=== PATIENT | male | born 1955 | race African-American/Black ===

== ENCOUNTER 2019-08-21 12:34 | Inpatient (IN) | payer MEDICARE ==
[~2019-08-21] VITALS: Ht 165.1 cm; Wt 82.1 kg
[2019-08-21 09:24] VITALS: BP 144/69
[2019-08-21 13:16] LABS: APTT 29.3 SECONDS (22.8-39.4); INR 1.35 (0.85-1.17); PROTIME 16.5 SECONDS (11.6-15.0)
--- NOTE | 2019-08-21 13:20 | NUR ---
RT COLLECTED ABG'S AND BASED ON RESULTS, O2 INCREASED TO 3 L PNC
[2019-08-21 13:23] VITALS: BP 201/95
[2019-08-21 14:08] LABS: CALC OSMOLALITY 309 mosm/kg (275-300); CALCIUM 8.2 mg/dL (8.5-10.1); CARBON DIOXIDE 22.5 mmol/L (21.0-32.0); CHLORIDE - SERUM 103 mmol/L (98-107); CREATININE - SERUM 14.6 mg/dL (0.6-1.3); GLUCOSE 84 mg/dL (74-106); POTASSIUM - SERUM 4.9 mmol/L (3.5-5.1); SODIUM 142 mmol/L (136-145); UREA NITROGEN 90 mg/dL (7-18); eGFR NON AFRICAN AMERICAN 4 mL/min (90-120)
[2019-08-21 14:19] LABS: BASOPHILS 0.1 % (0-2); EOSINOPHILS 0.1 % (0-7); HEMATOCRIT 37.3 % (42.0-54.0); HEMOGLOBIN 12.5 g/dL (13.5-17.5); IMMATURE GRANULOCYTES 0.4 % (0-5); LYMPHOCYTES 7.7 % (15-50); MCH 23.8 pg (26.0-34.0); MCHC 33.5 g/dL (31.0-37.0); MONOCYTES 6.2 % (2-11); NEUTROPHILS 85.5 % (40-80); PLATELET COUNT 141 10x3/uL (130-400); RBC 5.25 10x6/uL (4.20-6.10); RDW 20.9 % (11.5-14.5)
[2019-08-21 14:32] LABS: ALKALINE PHOSPHATASE 46 U/L (30-120); ALT (SGPT) 18 U/L (10-68); BILIRUBIN - TOTAL 0.66 mg/dL (0.2-1.3); CKMB 11.4 U/L (0.0-3.6); CREATINE KINASE 408 UL (21-232); PRO BNP 8567 pg/mL (0-125)
[2019-08-21 14:33] LABS: TROPONIN-I 0.082 ng/mL (0.000-0.060)
--- NOTE | 2019-08-21 14:40 | NUR ---
SPOKE WITH VALDEZ ARAUZ NO BC'S NEEDED BEFORE ABXS
--- NOTE | 2019-08-21 14:45 | NUR ---
RAC SL INFILTRATED. ATTEMPTED TO RESTART X2 UNSUCCESSFULLY X 2 RN'S. CALLED [facility] IN DIALYSIS. INSTR NOT TO GIVE ABXS OR CATAPRES BEFORE DIALYSIS. NOTIFIED
--- NOTE | 2019-08-21 14:45 | NUR ---
ROCEPHIN SCANNED BUT NOT STARTED D/T NO IV
[2019-08-21 14:57] VITALS: BP 232/86
--- NOTE | 2019-08-21 15:10 | NUR ---
TO DIALYSIS VIA STRETCHER CONDITION STABLE
--- NOTE | 2019-08-21 15:39 | NUR ---
REPORT CALLED TO SAHRA LONGORIA. PT TO GO TO ROOM #[id number] UPON COMPLETION OF DIALYSIS. INFORMED SWATI OF UNSUCCESSFUL IV ATTEMPT AND NO ABXS GIVEN. TO CALL WHEN PT GETS TO ROOM AND WILL ATTEMPT IV WITH US
[2019-08-21] MEDS ORDERED: NORVASC10 MG PO (15:56)
[2019-08-21] MEDS ORDERED: ISOSORBIDE MONO60 M1 PO (15:57)
[2019-08-21] MEDS ORDERED: COREG25 MG PO (15:57)
[2019-08-21] MEDS ORDERED: RENVELA800 MG PO (15:58)
--- NOTE | 2019-08-21 18:30 | NUR ---
RECIEVED PT TO FLOOR FROM DIALYSIS. PT OXYGEN TANK ON EMPTY.
--- NOTE | 2019-08-21 18:40 | NUR ---
PT TO ROOM #2106 AFTER DIALYSIS. IV PLACED TO DOROTHEA VIA US ASSIST. PT LEIGH WELL. REPORT TO SIENNA LONGORIA
--- NOTE | 2019-08-21 19:39 | NUR ---
EVENING ROUNDS COMPLETE. PT SITTING UP IN BED. FAMILY AT BEDSIDE. NO SIGNS OF DISTRESS. PT BP ELEVATED, WILL GIVE MEDICATIONS FROM EMAR. PT DENIES ANY NEEDS OR PAIN AT THIS TIME. CL IN REACH, BED IN LOWEST POSITION.
[2019-08-21 20:00] VITALS: BP 197/99
[2019-08-22] VITALS (7 sets, daily range): BP systolic 144–188; BP diastolic 59–88; Ht 165.1 cm; Wt 82.1 kg
--- NOTE | 2019-08-22 02:13 | NUR ---
PT UNABLE TO GIVE INFORMATION ON MED REC. PT STATES, "MY GIVES ME A CUP OF MEDICATION IN THE MORNING AND IN THE EVENING, I DONT KNOW WHAT ALL I TAKE."
[2019-08-22 05:55] LABS: ALBUMIN 2.4 g/dL (3.4-5.0); ANION GAP 16.7 mmol/L (8-16); BILIRUBIN - TOTAL 0.66 mg/dL (0.2-1.3); CALCIUM 8.3 mg/dL (8.5-10.1); CARBON DIOXIDE 27.2 mmol/L (21.0-32.0); CREATININE - SERUM 11.9 mg/dL (0.6-1.3); MAGNESIUM - SERUM 2.3 mg/dL (1.8-2.4); PHOSPHOROUS 7.5 mg/dL (2.5-4.9); POTASSIUM - SERUM 4.9 mmol/L (3.5-5.1)
[2019-08-22 06:16] LABS: BASOPHILS 0 % (0-2); EOSINOPHILS 1.7 % (0-7); HEMATOCRIT 32.6 % (42.0-54.0); HEMOGLOBIN 10.6 g/dL (13.5-17.5); IMMATURE GRANULOCYTES 0.4 % (0-5); LYMPHOCYTES 13.4 % (15-50); MCHC 32.5 g/dL (31.0-37.0); MCV 70.9 fL (80.0-100.0); MONOCYTES 7.9 % (2-11); NEUTROPHILS 76.6 % (40-80); PLATELET COUNT 134 10x3/uL (130-400); RDW 20.4 % (11.5-14.5); WBC 10.8 10x3/uL (4.8-10.8)
--- NOTE | 2019-08-22 19:52 | NUR ---
REPORT RECIEVED AND ROUNDING COMPLETE. PATIENT LAYING IN BED IN LOW FOWLERS. PATIENT HAS A RIGHT FOREARM PIV THAT IS SALINE LOCKED AT THIS TIME. PIV IS PATENT AND FLUSHES EASILY. PATIENT IS WEARING NASAL CANNULA WITH O2 SET ON 3L. PATIENT IS ALERT AND ORIENTED X4. PATIENT REQUESTED A CUP OF ICE WGHICH WAS GIVEN. PATIENT SHOWS NO S/SX OF DISTRESS AT THIS TIME. PATIENT STATES HE HAS NO OTHER NEEDS. CALL LIGHT WITHIN REACH AND BED IN LOWEST LOCKED POSITION.
--- NOTE | 2019-08-22 21:25 | NUR ---
SCANNED MEDICATIONS ON RT'S COW. COMPUTER IN ROOM [facility]
[2019-08-23 01:18] VITALS: BP 106/67
--- NOTE | 2019-08-23 03:45 | NUR ---
I have reviewed this patient and I concur with the Shift Assessment completed by the Licensed Practical Nurse today this shift.
[2019-08-23 04:42] VITALS: BP 169/71
[2019-08-23 08:00] VITALS: BP 186/87
--- NOTE | 2019-08-23 09:57 | NUR ---
NURSE PRACTIONER AT BEDSIDE AND DISCUSSING DISCHARGE PLANNING. PT IS CURRENTLY ON OXYGEN BUT DOESNT WEAR ANY AT HOME. WE REMOVED IT TO SEE HOW HE DOES WITHOUT IT AND WILL CPOC.
--- NOTE | 2019-08-23 10:25 | NUR ---
RESTING PULSE OX 93% ON RA. PT DENIES ANY SOB. WILL LEAVE NC OFF AND SEE HOW HE CONTINUES TO DO.
[2019-08-23] MEDS ORDERED: AMOX TR-K CLV 21 TAB PO (11:35)
[2019-08-23 12:00] VITALS: BP 178/74
--- NOTE | 2019-08-23 12:08 | NUR ---
WALK TEST PERFORMED TO CHECK FOR HOME AND PORTABLE OXYGEN USE. DURING OUR WALK PTS O2 SAT DROPPED TO 84%. ASSISTED HIM BACK TO HIS ROOM AND WAS ABLE TO GET HIS LEVEL BACK UP. NC IN PLACE @2L AND PULSE OX NOW 94%. DISCUSSED WITH CASE MANAGEMENT AND WILL GET HIM SET UP BEFORE DISCHARGE. DIALYSIS CALLED FOR PT, WILL ESCORT HIM DOWN WITH HIS MEAL TRAY VIA W/C. NO FURTHER NEEDS AT THIS TIME.
--- NOTE | 2019-08-23 13:55 | MORECARE ---
CASE MANAGEMENT DISCHARGE SUMMARY PATIENT: HOANG GUTIERREZ UNIT: [id number] ADM DATE: 08/21/19 AGE: 64 : 53 SEX: M ROOM/BED: D.2106 AUTHOR: ELISE COCHRAN PHYSICIAN: REFERRING PHYSICIAN: ИРИНА HAIRSTON DO DATE OF SERVICE: 08/23/19 Discharge Plan Patient Name: HOANG GUTIERREZ Facility: [facility]:[place] : 1955 Planned Disposition: Home Anticipated Discharge Date: 08/23/19 Discharge Date: Expected LOS: 2 Initial Reviewer: [email or web address] Initial Review Date: 08/21/2019 Generated: 08/23/19 2:55 pm DCPIA - Discharge Planning Initial Assessment Updated by [id number]: Ben Engel on 08/23/19 1:55 pm * Is the patient Alert and Oriented? Yes * How many steps to enter\exit or inside your home? 3-4 * PCP S[facility]INA TORRES * Pharmacy [facility] * Preadmission Environment Home with Family * ADLs Partial Dependent * Partial ADLs (Assistance needed) Medication Management * Equipment None * Other Equipment NO MEDICAL EQUIPMENT PROVIDER PREFERENCE * List name and contact numbers for known caregivers / representatives who currently or will assist patient after discharge: JORGE ODELL DTR, * Verbal permission to speak to the caregivers and representatives has been obtained from the patient. N/A * Community resources currently utilized Other * Please name any agencies selected above. [facility], MWF, 0700, [facility], [facility] * Additional services required to return to the preadmission environment? No * Can the patient safely return to the preadmission environment? Yes * Has this patient been hospitalized within the prior 30 days at any hospital? No External Providers External Provider: OTHER-OTHER Next Contact Date: 08/23/2019 Service Request Date: Service Type: Resolution: Reviewer: Comments: Patient Name: HOANG GUTIERREZ Page [phone] at 1355 All edits/amendments must be made on the electronic document DICTATION DATE: 08/23/19 1356 CORRUGATED FASTENER DRIVER: YOSI 08/23/19 1355 RPT#: [id number] DC DATE: STATUS: ADM IN [facility] [address] [place] [address] END OF REPORT
--- NOTE | 2019-08-23 14:13 | MORECARE ---
CASE MANAGEMENT DISCHARGE SUMMARY PATIENT: HOANG GUTIERREZ UNIT: [id number] ADM DATE: 08/21/19 AGE: 64 : 53 SEX: M ROOM/BED: D.2100 AUTHOR: SAMMIE,DOC PHYSICIAN: REFERRING PHYSICIAN: ИРИНА HAIRSTON DO DATE OF SERVICE: 08/23/19 Discharge Plan Patient Name: HOANG GUTIERREZ Facility: [facility]:[place] : 1955 Planned Disposition: Home Anticipated Discharge Date: 08/24/19 Discharge Date: Expected LOS: 3 Initial Reviewer: [email or web address] Initial Review Date: 08/21/2019 Generated: 08/23/19 3:13 pm Comments DCP- Discharge Planning Updated by [id number]: Ben Engel on 08/23/19 1:[address] Patient Name: HOANG GUTIERREZ Admission Status: ER Accout number: [id number] Admission Date: 08-21-2019 : 1955 Admission Diagnosis: Attending: AJITH Current LOS: 2 Anticipated DC Date: 08-23-2019 Planned Disposition: Home Primary Insurance: MEDICARE A & B PLANNED EXTERNAL PROVIDER: [facility]QUIP[facility] Discharge Planning Comments: CM SPOKE TO BEDSIDE NURSE WHO INFORMED CM THAT PT NEEDS OXYGEN FOR DISCHARGE. CM MET WITH PT IN ROOM TO DISCUSS DISCHARGE PLANNING AND NEEDS. PT REPORTS LIVING AT HOME INDEPENDENTLY WITH SPOUSE WHO ASSISTS WITH MEDICATIONS. PT HAS NO MEDICAL EQUIPMENT AND NO OUTSIDE SERVICES ASSISTING IN THE HOME. CM DISCUSSED AVAILABILITY OF HOME HEALTH, REHAB SERVICES AND MEDICAL EQUIPMENT. PT DENIES DISCHARGE NEEDS, REPORTS HE WILL CALL FAMILY TO PICK HIM UP FOR DISCHARGE HOME. IMPORTANT MESSAGE FROM MEDICARE PROVIDED AND EXPLAINED. PT HAS NO CHOICE OF OXYGEN PROVIDER, CHOICE COMPLETED. CM SPOKE TO VALDEZ CARBAJAL AND RECEIVED OXYGEN ORDERS. CM CALLED [facility], , SPOKE TO ABY WHO WILL PROCESS ORDER FOR OXYGEN AND HAVE [facility] IN [place] DELIVER PORTABLE TO HOSPITAL FOR DISCHARGE HOME TODAY AND WILL HAVE HOME DELIVERY OF OXYGEN AFTER PT ARRIVES AT HOME TODAY. CM FAXED ORDER AND REFERRAL TO [facility] AT [phone]. CM NOTIFIED PT IN DIALYSIS WHO REPORTS HIS FAMILY CANNOT REFUELING RAMP SUPERVISOR UNTIL TOMORROW. CM CALLED MEDICAID TRANSPORTATION, PT IS NOT ELIGIBLE HE IS "[place] MED[place]ID." CM CALLED HUSSEIN CALVERT, [phone], OBTAINED QUOTE FOR TRANSPORT OF $225.00. CM NOTIFIED CM DIRECTOR ABEL AND REQUESTED APPROVAL FOR [facility] TRANSPORTATION HOME FOR DISHCHARGE TODAY. CM WAITING ON ADMINISTRATIVE APPROVAL FOR [employer] HOME TODAY. IF DENIED, FAMILY WILL REFUELING RAMP SUPERVISOR TOMORROW. [facility] TO DELIVER PORTABLE OXYGEN TO PT'S ROOM FOR DISCHARGE HOME TODAY. Fitter Armament: Ben Engel Appended by Ben Engel on 08/23/2019 14:12 ESCAPEMENT MATCHER: CM RECEIVED CALL FROM CM CHEMICAL COMPOUNDER HELPER ABEL, I DECLINED, PT CAN WAIT ON FAMILY TO TRANSPORT TOMORROW, 08-24-19. FAMILY WILL REFUELING RAMP SUPERVISOR TOMORROW. [facility] TO DELIVER PORTABLE OXYGEN TO PT'S ROOM 08-23-19 FOR DISCHARGE HOME. Fitter Armament: Ben Engel DCPIA - Discharge Planning Initial Assessment Updated by [id number]: Ben Engel on 08/23/19 1:55 pm * Is the patient Alert and Oriented? Yes * How many steps to enter\\exit or inside your home? 3-4 * PCP [facility] TORRES * Pharmacy [facility] * Preadmission Environment Home with Family * ADLs Partial Dependent * Partial ADLs (Assistance needed) Medication Management * Equipment None * Other Equipment NO MEDICAL EQUIPMENT PROVIDER PREFERENCE * List name and contact numbers for known caregivers / representatives who currently or will assist patient after discharge: JORGE ODELL DTR, * Verbal permission to speak to the caregivers and representatives has been obtained from the patient. N/A * Community resources currently utilized Other * Please name any agencies selected above. OUTPATIENT DIALYSIS, MWF, 0700, [facility], [facility] * Additional services required to return to the preadmission environment? No * Can the patient safely return to the preadmission environment? Yes * Has this patient been hospitalized within the prior 30 days at any hospital? No Coverage Notice Reviewer: [id number] - Ben Engel Notice Issued Date-Time: 08/23/2019 12:10 Notice Type: Patient Choice Letter Notice Delivered To: Patient Relationship to Patient: Hardware Manager Name: Delivery Method: HAND - Hand Delivered Jaki Days: Prior Verbal Notification: Recipient Understood Notice: Yes Recipient Signature: Yes Med Rec Note Co-signed by Attending: Coverage Notice Comment: NO MEDICAL EQUIPMENT PROVIDER PREFERENCE Reviewer: [id number] Gracia Engel Notice Issued Date-Time: 08/23/2019 12:10 Notice Type: IM Discharge Notice Notice Delivered To: Patient Relationship to Patient: Hardware Manager Name: Delivery Method: HAND - Hand Delivered Jaki Days: Prior Verbal Notification: Recipient Understood Notice: Yes Recipient Signature: Yes Med Rec Note Co-signed by Attending: Coverage Notice Comment: Last DP export: 08/23/19 12:55 p Patient Name: HOANG GUTIERREZ Page [phone] at 1413 All edits/amendments must be made on the electronic document DICTATION DATE: 08/23/19 1413 [facility] ATTENDANT: YOSI 08/23/19 1413 RPT#: [id number] DC DATE: STATUS: ADM IN [facility] [address] [place] [address] END OF REPORT
--- NOTE | 2019-08-23 14:19 | NUR ---
PT JUST TOLD US HIS FAMILY CANT COME FOR TRANSPORTATION UNTIL TOMORROW WILL RELAY MESSAGE TO CASE MANAGEMENT.
--- NOTE | 2019-08-23 15:49 | NUR ---
PT BACK FROM DIALYSIS AND AMBULATED TO HIS BED. NEW PORTABLE OXYGEN IN ROOM AND READY FOR DISCHARGE. VSS. PT RESTING QUIETLY AND DENIES ANY CURRENT PAIN OR NEEDS AT THIS TIME. CL IN REACH, BED IN LOWEST, SIDE RAILS X2. WILL CPOC.
--- NOTE | 2019-08-23 18:50 | NUR ---
PT WILL BE DISCHARGED TOMORROW AND IS HAPPY ABOUT THIS. PT STATES HE IS FEELING GOOD AND DENIES ANY CURRENT PAIN OR NEEDS. CL IN REACH, WILL PASS ON IN SHIFT REPORT.
[2019-08-23 20:30] VITALS: BP 183/98
[2019-08-24 00:30] VITALS: BP 158/84
[2019-08-24 04:30] VITALS: BP 161/59
[2019-08-24 08:00] VITALS: BP 195/99
--- NOTE | 2019-08-24 09:44 | NUR ---
PT AWAKE AND ORIETNED, WAITING ON RIDE. I/V OUT TIP INTACT.
--- NOTE | 2019-08-24 11:39 | NUR ---
PT ESCORTED OUT VIA SELF AMBULATION, DENIES NEED FOR WHEELCHIAR, TO DAUGHTERS POV.
--- NOTE | 2019-08-25 11:43 | MORECARE ---
CASE MANAGEMENT DISCHARGE SUMMARY PATIENT: HOANG GUTIERREZ UNIT: [id number] ADM DATE: 08/21/19 AGE: 64 : 51 SEX: M ROOM/BED: D.2104 AUTHOR: SAMMIE,DOC PHYSICIAN: REFERRING PHYSICIAN: ИРИНА HAIRSTON DO DATE OF SERVICE: 08/25/19 Discharge Plan Patient Name: HOANG GUTIERREZ Facility: [facility]:[place] : 1955 Planned Disposition: Home Anticipated Discharge Date: 08/24/19 Discharge Date: 08/24/2019 Expected LOS: 3 Initial Reviewer: [email or web address] Initial Review Date: 08/21/2019 Generated: 08/25/19 12:42 pm Comments DCP- Discharge Planning Updated by [id number]: Ben Engel on 08/23/19 1:[address] Patient Name: HOANG GUTIERREZ Admission Status: ER Accout number: [id number] Admission Date: 08-21-2019 : 1955 Admission Diagnosis: Attending: AJITH Current LOS: 2 Anticipated DC Date: 08-23-2019 Planned Disposition: Home Primary Insurance: MEDICARE A & B PLANNED EXTERNAL PROVIDER: [facility] MEDICAL [facility]QUIPMENT Discharge Planning Comments: CM SPOKE TO BEDSIDE NURSE WHO INFORMED CM THAT PT NEEDS OXYGEN FOR DISCHARGE. CM MET WITH PT IN ROOM TO DISCUSS DISCHARGE PLANNING AND NEEDS. PT REPORTS LIVING AT HOME INDEPENDENTLY WITH SPOUSE WHO ASSISTS WITH MEDICATIONS. PT HAS NO MEDICAL EQUIPMENT AND NO OUTSIDE SERVICES ASSISTING IN THE HOME. CM DISCUSSED AVAILABILITY OF HOME HEALTH, REHAB SERVICES AND MEDICAL EQUIPMENT. PT DENIES DISCHARGE NEEDS, REPORTS HE WILL CALL FAMILY TO PICK HIM UP FOR DISCHARGE HOME. IMPORTANT MESSAGE FROM MEDICARE PROVIDED AND EXPLAINED. PT HAS NO CHOICE OF OXYGEN PROVIDER, CHOICE COMPLETED. CM SPOKE TO VALDEZ CARBAJAL AND RECEIVED OXYGEN ORDERS. CM CALLED [facility]IP[facility], , SPOKE TO ABY WHO WILL PROCESS ORDER FOR OXYGEN AND HAVE [facility] IN [place] DELIVER PORTABLE TO HOSPITAL FOR DISCHARGE HOME TODAY AND WILL HAVE HOME DELIVERY OF OXYGEN AFTER PT ARRIVES AT HOME TODAY. CM FAXED ORDER AND REFERRAL TO [facility] AT [phone]. CM NOTIFIED PT IN DIALYSIS WHO REPORTS HIS FAMILY CANNOT BACK ROLL LATHE OPERATOR UNTIL TOMORROW. CM CALLED MEDICAID TRANSPORTATION, PT IS NOT ELIGIBLE HE IS "[place]." CM CALLED HUSSEIN TURNERI, [phone], OBTAINED QUOTE FOR TRANSPORT OF $225.00. CM NOTIFIED CM DIRECTOR ABEL AND REQUESTED APPROVAL FOR [facility] TRANSPORTATION HOME FOR DISHCHARGE TODAY. CM WAITING ON ADMINISTRATIVE APPROVAL FOR [employer] HOME TODAY. IF DENIED, FAMILY WILL BACK ROLL LATHE OPERATOR TOMORROW. [facility] TO DELIVER PORTABLE OXYGEN TO PT'S ROOM FOR DISCHARGE HOME TODAY. Cast Iron Dipper: Ben Engel Appended by Ben Engel on 08/23/2019 14:12 QUARTER TRIMMER: CM RECEIVED CALL FROM CM FUDGE CANDY MAKER ABEL, NEHAL DECLINED, PT CAN WAIT ON FAMILY TO TRANSPORT TOMORROW, 08-24-19. FAMILY WILL BACK ROLL LATHE OPERATOR TOMORROW. [facility] TO DELIVER PORTABLE OXYGEN TO PT'S ROOM 08-23-19 FOR DISCHARGE HOME. Cast Iron Dipper: Ben Engel DCPIA - Discharge Planning Initial Assessment Updated by [id number]: Ben Engel on 08/23/19 1:55 pm * Is the patient Alert and Oriented? Yes * How many steps to enter\\exit or inside your home? 3-4 * PCP [facility]INA TORRES * Pharmacy [facility] * Preadmission Environment Home with Family * ADLs Partial Dependent * Partial ADLs (Assistance needed) Medication Management * Equipment None * Other Equipment NO MEDICAL EQUIPMENT PROVIDER PREFERENCE * List name and contact numbers for known caregivers / representatives who currently or will assist patient after discharge: JORGE ODELL DTR, * Verbal permission to speak to the caregivers and representatives has been obtained from the patient. N/A * Community resources currently utilized Other * Please name any agencies selected above. OUTPATIENT DIALYSIS, MWF, 0700, [facility], [facility]EL[facility] * Additional services required to return to the preadmission environment? No * Can the patient safely return to the preadmission environment? Yes * Has this patient been hospitalized within the prior 30 days at any hospital? No Coverage Notice Reviewer: [id number] - Ben Engel Notice Issued Date-Time: 08/23/2019 12:10 Notice Type: Patient Choice Letter Notice Delivered To: Patient Relationship to Patient: Lamina Searcher Name: Delivery Method: HAND - Hand Delivered Jaki Days: Prior Verbal Notification: Recipient Understood Notice: Yes Recipient Signature: Yes Med Rec Note Co-signed by Attending: Coverage Notice Comment: NO MEDICAL EQUIPMENT PROVIDER PREFERENCE Reviewer: [email or web address] Gracia Engel Notice Issued Date-Time: 08/23/2019 12:10 Notice Type: IM Discharge Notice Notice Delivered To: Patient Relationship to Patient: Lamina Searcher Name: Delivery Method: HAND - Hand Delivered Jkai Days: Prior Verbal Notification: Recipient Understood Notice: Yes Recipient Signature: Yes Med Rec Note Co-signed by Attending: Coverage Notice Comment: Last DP export: 08/23/19 1:13 p Patient Name: HOANG GUTIERREZ Page [phone] at 1143 All edits/amendments must be made on the electronic document DICTATION DATE: 08/25/19 1142 AIRCRAFT DISPATCHER: YOSI 08/25/19 1142 RPT#: [id number] DC DATE:08/24/19 STATUS: DIS IN [facility] [address] [place] [address] END OF REPORT
== END 2019-08-24 11:40 | disposition home or self-care (01) | DRG 193 ==
LOC: D.ER 12:34 → D.M2 14:19
PROVIDERS: Family Medicine; ADMIT Internal Medicine; ATTEND Internal Medicine
PROC: 5A1D70Z Performance of Urinary Filtration, Intermittent, Less than 6 Hours Per Day (ICD-10-PCS; principal; 2019-08-21)
DX: J18.9 Pneumonia, unspecified organism (principal); N18.6 End stage renal disease; J96.91 Respiratory failure, unspecified with hypoxia; I12.0 Hypertensive chronic kidney disease with stage 5 chronic kidney disease or end stage renal disease; E87.70 Fluid overload, unspecified; E87.5 Hyperkalemia; Z99.2 Dependence on renal dialysis

== ENCOUNTER 2020-02-25 14:35 | Inpatient (IN) | payer MEDICARE ==
[~2020-02-25] VITALS: Ht 165.1 cm; Wt 82.6 kg
[~2020-02-25 14:35] MED LIST: AMOX TR-K CLV 21 TAB PO; COREG25 MG PO; ISOSORBIDE MONO60 M1 PO; NORVASC10 MG PO; RENVELA800 MG PO
[2020-02-25 17:44] LABS: BASOPHILS 0 % (0-2); EOSINOPHILS 3.2 % (0-7); HEMATOCRIT 28.2 % (42.0-54.0); HEMOGLOBIN 8.9 g/dL (13.5-17.5); IMMATURE GRANULOCYTES 0.3 % (0-5); LYMPHOCYTES 13.2 % (15-50); MCH 23.2 pg (26.0-34.0); MCHC 31.6 g/dL (31.0-37.0); MCV 73.6 fL (80.0-100.0); MONOCYTES 10.1 % (2-11); NEUTROPHILS 73.2 % (40-80); RBC 3.83 10x6/uL (4.20-6.10); RDW 19.7 % (11.5-14.5)
[2020-02-25 17:46] LABS: MEAN PLATELET VOLUME 0 fL (7.4-10.4); PLATELET COUNT 229 10x3/uL (130-400)
--- NOTE | 2020-02-25 17:49 | NUR ---
covid-19 swab obtained and sent to the lab
[2020-02-25 17:50] LABS: CALC OSMOLALITY 277 mosm/kg (275-300); CALCIUM 8.5 mg/dL (8.5-10.1); CARBON DIOXIDE 29.7 mmol/L (21.0-32.0); CHLORIDE - SERUM 100 mmol/L (98-107); CREATININE - SERUM 7.6 mg/dL (0.6-1.3); GLUCOSE 93 mg/dL (74-106); POTASSIUM - SERUM 3.8 mmol/L (3.5-5.1); SODIUM 135 mmol/L (136-145); UREA NITROGEN 36 mg/dL (7-18); eGFR NON AFRICAN AMERICAN 8 mL/min (90-120)
[2020-02-25 17:56] LABS: INR 1.22 (0.85-1.17); PROTIME 15.3 SECONDS (11.6-15.0)
[2020-02-25 17:57] LABS: APTT 30.6 SECONDS (22.8-39.4)
[2020-02-25 18:14] LABS: ALBUMIN 3.1 g/dL (3.4-5.0); ALKALINE PHOSPHATASE 52 U/L (30-120); ALT (SGPT) 12 U/L (10-68); BILIRUBIN - TOTAL 0.61 mg/dL (0.2-1.3); CKMB 7.1 U/L (0.0-3.6); CREATINE KINASE 435 UL (21-232); PRO BNP 10059 pg/mL (0-125); PROTEIN - SERUM 8.8 g/dL (6.4-8.2)
[2020-02-25 18:22] LABS: TROPONIN-I 0.076 ng/mL (0.000-0.060)
[2020-02-25 18:31] VITALS: BP 200/88
[2020-02-25 21:02] VITALS: BP 161/76
[2020-02-25 23:47] VITALS: BP 172/77
[2020-02-26 08:17] VITALS: BP 153/78
[2020-02-26] MEDS ORDERED: BAYER CHEWABLE81 MG PO (12:02)
[2020-02-26] MEDS ORDERED: HYDRALAZINE HCL50 MG PO (12:03)
[2020-02-26] MEDS ORDERED: OMEPRAZOLE40 MG PO (12:03)
[2020-02-26 12:46] VITALS: Ht 165.1 cm; Wt 82.6 kg
--- NOTE | 2020-02-26 17:30 | MORECARE ---
CASE MANAGEMENT DISCHARGE SUMMARY PATIENT: HOANG GUTIERREZ UNIT: [id number] ADM DATE: 02/25/20 AGE: 65 : 53 SEX: M ROOM/BED: D.2135 AUTHOR: ELISE COCHRAN PHYSICIAN: REFERRING PHYSICIAN: ИРИНА HAIRSTON DO DATE OF SERVICE: 02/26/20 Discharge Plan Patient Name: HOANG GUTIERREZ [facility] : 1955 Planned Disposition: Anticipated Discharge Date: Discharge Date: Expected LOS: Initial Reviewer: [id number] Initial Review Date: 02/25/2020 Generated: 02/26/20 6:29 pm Patient Name: HOANG GUTIERREZ Page [phone] at 1730 All edits/amendments must be made on the electronic document DICTATION DATE: 02/26/201728 JOB SITE SUPERINTENDENT: YOSI 02/26/201728 RPT#: [id number] DC DATE: STATUS: ADM IN [facility] [address] [place] [address] END OF REPORT
[2020-02-26 19:37] VITALS: BP 125/83
--- NOTE | 2020-02-26 20:35 | NUR ---
PATIENT IS RESTING IN BED. HE IS ALERT AND ORIENTED. HE IS ON 1 LITER NASAL CANNULA. HE SAID HE DOES MAKE SOME URINE, AND HE IS A DIALYSIS PATIENT. WE WILL CONTINUE TO MONITOR HIS RESPIRATORY STATUS.
[2020-02-26 23:20] VITALS: BP 168/69
--- NOTE | 2020-02-27 03:23 | NUR ---
PATIENT IS SLEEPING IN BED. HE DOES MAKE SOME URINE. HE GETS UP AD LUIS. HE IS ON 1 LITER NASAL CANNULA. WE WILL CONTINUE TO MONITOR HIS RESPIRATORY STATUS.
[2020-02-27 04:00] VITALS: BP 191/82
--- NOTE | 2020-02-27 05:54 | NUR ---
PATIENT'S BLOOD PRESSURE IS HIGH, AND HE IS COMPLAINING OF CHEST PAIN AND SOB. I INCREASED HIS OXYGEN FROM 1 LITER TO 3 LITERS. I ELEVATED HIS HEAD TO HELP HIM BREATH. I GAVE HIM HIS 0900 BP MEDS, HIS COREG,IMDUR, NORVASC, AND HYDRALAZINE. WE WILL CONTINUTE TO MONITOR HIS BP.
[2020-02-27 07:24] LABS: ANION GAP 16.6 mmol/L (8-16); CALCIUM 8.5 mg/dL (8.5-10.1); CARBON DIOXIDE 23.7 mmol/L (21.0-32.0); PHOSPHOROUS 7.7 mg/dL (2.5-4.9); POTASSIUM - SERUM 4.3 mmol/L (3.5-5.1); VANCOMYCIN - RANDOM 11.7 ug/mL (10.0-20.0)
[2020-02-27 07:30] LABS: CREATININE - SERUM 12.6 mg/dL (0.6-1.3)
[2020-02-27 07:33] LABS: BASOPHILS 0 % (0-2); EOSINOPHILS 3.5 % (0-7); HEMATOCRIT 24.4 % (42.0-54.0); HEMOGLOBIN 7.8 g/dL (13.5-17.5); IMMATURE GRANULOCYTES 0.4 % (0-5); LYMPHOCYTES 10.6 % (15-50); MCH 23.3 pg (26.0-34.0); MCV 72.8 fL (80.0-100.0); MONOCYTES 10.6 % (2-11); NEUTROPHILS 74.9 % (40-80); RBC 3.35 10x6/uL (4.20-6.10); RDW 19.3 % (11.5-14.5); WBC 10.6 10x3/uL (4.8-10.8)
[2020-02-27 07:35] LABS: PLATELET COUNT 163 10x3/uL (130-400)
[2020-02-27 08:10] VITALS: BP 169/68
--- NOTE | 2020-02-27 08:49 | NUR ---
DIALYSIS CALLED FOR PT, WHEN ENTERING ROOM FOR TRANSPORT STATES HE WANTS TO TAKE A SHOWER FIRST. NOTIFIED UNIT IN CASE THEY WANTED TO START SOMEONE ELSE BUT WILL WAIT FOR HIM.
[2020-02-27 14:19] VITALS: BP 158/83
[2020-02-27 15:29] VITALS: BP 179/68
--- NOTE | 2020-02-27 19:00 | NUR ---
BED LOW AND LOCKED AND NEEDS SEEN TO
[2020-02-27 21:35] VITALS: BP 171/71
[2020-02-28] VITALS: BP 165/64
[2020-02-28 04:00] VITALS: BP 174/79
[2020-02-28 07:15] LABS: ANION GAP 14.3 mmol/L (8-16); CARBON DIOXIDE 27.4 mmol/L (21.0-32.0); CREATININE - SERUM 9.6 mg/dL (0.6-1.3); POTASSIUM - SERUM 3.7 mmol/L (3.5-5.1); VANCOMYCIN - RANDOM 8.4 ug/mL (10.0-20.0)
[2020-02-28 07:46] LABS: BASOPHILS 0 % (0-2); EOSINOPHILS 4.9 % (0-7); HEMATOCRIT 27.1 % (42.0-54.0); HEMOGLOBIN 8.5 g/dL (13.5-17.5); IMMATURE GRANULOCYTES 0.2 % (0-5); LYMPHOCYTES 15.5 % (15-50); MCHC 31.4 g/dL (31.0-37.0); MCV 73.2 fL (80.0-100.0); MONOCYTES 10.3 % (2-11); NEUTROPHILS 69.1 % (40-80); PLATELET COUNT 186 10x3/uL (130-400); RDW 18.9 % (11.5-14.5); WBC 9.9 10x3/uL (4.8-10.8)
--- NOTE | 2020-02-28 07:50 | NUR ---
AM ROUNDING DONE WITH PATIENT IN RESTROOM AT THIS TIME. DENIES NEEDS AT THIS TIME. ON ROOM AIR. COMPLETE BED LINEN CHANGED PER THIS NURSE. RIGHT HAND SEEN WITH SALINE LOCK. LEFT AVF WITH + BRUIT AND THRILL.
[2020-02-28 08:24] VITALS: BP 189/78
[2020-02-28 11:44] VITALS: BP 142/79
--- NOTE | 2020-02-28 13:05 | NUR ---
Nutrition Follow-up: Covid negative. HD yesterday (-3 L). Diet: Renal Wt: 182# (02/27) Labs noted: K+ 3.7, PO4 8.0 Meds noted: Renagel, Protonix -Encourage PO intake and honor food preferences within diet restrictions. -Monitor wt; noted daily wts ordered. -RD following.
[2020-02-28 16:16] VITALS: BP 161/71
--- NOTE | 2020-02-28 19:30 | NUR ---
PT IN BED, AAO X 3, RESP EVEN AND UNLABORED, NO DISTRESS NOTED, CL IN REACH, SR UP X 2.
[2020-02-28 20:00] VITALS: BP 154/74
[2020-02-29] VITALS: BP 164/70
--- NOTE | 2020-02-29 00:05 | NUR ---
I have reviewed this patient and I concur with the Shift Assessment completed by the Licensed Practical Nurse today this shift.
[2020-02-29 04:00] VITALS: BP 153/69
[2020-02-29 07:00] VITALS: BP 178/82
[2020-02-29 07:42] LABS: ANION GAP 16.7 mmol/L (8-16); CALCIUM 9.2 mg/dL (8.5-10.1); CARBON DIOXIDE 26.1 mmol/L (21.0-32.0); PHOSPHOROUS 8.8 mg/dL (2.5-4.9); POTASSIUM - SERUM 3.8 mmol/L (3.5-5.1)
[2020-02-29 08:42] LABS: BASOPHILS 0 % (0-2); EOSINOPHILS 4.6 % (0-7); HEMATOCRIT 26.3 % (42.0-54.0); HEMOGLOBIN 8.3 g/dL (13.5-17.5); IMMATURE GRANULOCYTES 0.2 % (0-5); LYMPHOCYTES 14.1 % (15-50); MCH 23.1 pg (26.0-34.0); MCHC 31.6 g/dL (31.0-37.0); MCV 73.1 fL (80.0-100.0); MONOCYTES 7.4 % (2-11); NEUTROPHILS 73.7 % (40-80); RDW 18.7 % (11.5-14.5); WBC 9.2 10x3/uL (4.8-10.8)
[2020-02-29 08:46] LABS: PLATELET COUNT 244 10x3/uL (130-400)
[2020-02-29] MEDS ORDERED: ZITHROMAX250 MG PO (10:01)
[2020-02-29] MEDS ORDERED: OMNICEF300 MG PO (10:01)
--- NOTE | 2020-02-29 10:10 | NUR ---
PT'S RX'S FOR OMNICEF AND ZITHROMAX ISSUED TO [facility] IN [place].
--- NOTE | 2020-02-29 10:56 | MORECARE ---
CASE MANAGEMENT DISCHARGE SUMMARY PATIENT: HOANG GUTIERREZ UNIT: [id number] ADM DATE: 02/25/20 AGE: 65 : 53 SEX: M ROOM/BED: D.2135 AUTHOR: ELISE COCHRAN PHYSICIAN: REFERRING PHYSICIAN: ИРИНА HAIRSTON DO DATE OF SERVICE: 02/29/20 Discharge Plan Patient Name: HOANG GUTIERREZ Facility: [facility]:[place] : 1955 Planned Disposition: Anticipated Discharge Date: Discharge Date: Expected LOS: Initial Reviewer: [email or web address] Initial Review Date: 02/25/2020 Generated: 02/29/20 11:55 am External Providers External Provider: [facility] Next Contact Date: Service Request Date: Service Type: Resolution: Reviewer: Comments: Last DP export: 02/26/20 4:30 p Patient Name: HOANG GUTIERREZ Page [phone] at 1056 All edits/amendments must be made on the electronic document DICTATION DATE: 02/29/20 1055 ENGINE COWLING INSTALLER: YOSI 02/29/20 1055 RPT#: [id number] DC DATE: STATUS: ADM IN [facility] [address] [place] [address] END OF REPORT
--- NOTE | 2020-02-29 15:49 | NUR ---
I have reviewed this patient and I concur with the Shift Assessment completed by the Licensed Practical Nurse today this shift.
--- NOTE | 2020-02-29 16:22 | NUR ---
D/C INSTRUCTIONS REVIEWED WITH PT AND FAMILY MEMBER. IV D/C WITH CATHETER TIP INTACT. PT LEFT WITH ALL BELONGINGS VIA WHEELCHAIR TO PERSONAL VEHICLE.
--- NOTE | 2020-03-02 08:02 | MORECARE ---
CASE MANAGEMENT DISCHARGE SUMMARY PATIENT: HOANG GUTIERREZ UNIT: [id number] ADM DATE: 02/25/20 AGE: 65 : 51 SEX: M ROOM/BED: D.2135 AUTHOR: ELISE COCHRAN PHYSICIAN: REFERRING PHYSICIAN: ИРИНА HAIRSTON DO DATE OF SERVICE: 03/02/20 Discharge Plan Patient Name: HOANG GUTIERREZ [facility] [facility] 1955 Planned Disposition: Anticipated Discharge Date: Discharge Date: 02/29/2020 Expected LOS: Initial Reviewer: [id number] Initial Review Date: 02/25/2020 Generated: 03/02/20 9:01 am Coverage Notice Reviewer: [email or web address] Mcleod Notice Issued Date-Time: 02/29/2020 10:00 Notice Type: IM Discharge Notice Notice Delivered To: Patient Relationship to Patient: Process Mechanic Name: Delivery Method: HAND - Hand Delivered Jaki Days: Prior Verbal Notification: Recipient Understood Notice: Yes Recipient Signature: Yes Med Rec Note Co-signed by Attending: Coverage Notice Comment: dc imm Reviewer: [email or web address] Gracia Mcleod Notice Issued Date-Time: 02/29/2020 10:00 Notice Type: Patient Choice Letter Notice Delivered To: Patient Relationship to Patient: Process Mechanic Name: Delivery Method: HAND - Hand Delivered Jaki Days: Prior Verbal Notification: Recipient Understood Notice: Yes Recipient Signature: Yes Med Rec Note Co-signed by Attending: Coverage Notice Comment: [facility] in [facility] for oxygen and dme needs for a cane Last DP export: 02/29/20 9:56 a Patient Name: HOANG GUTIERREZ Page [phone] at 0802 All edits/amendments must be made on the electronic document DICTATION DATE: 03/02/20 08 ELECTRIC MOTORS SALESPERSON: YOSI 03/02/20 08 RPT#: [id number] DC DATE:02/29/20 STATUS: DIS IN [place] [address] [place] [address] END OF REPORT
== END 2020-02-29 16:24 | disposition home or self-care (01) | DRG 193 ==
LOC: D.ER 14:35 → D.M2 20:01
PROVIDERS: Family Medicine; Internal Medicine Nephrology; ADMIT Internal Medicine; ATTEND Internal Medicine
PROC: 5A1D70Z Performance of Urinary Filtration, Intermittent, Less than 6 Hours Per Day (ICD-10-PCS; principal; 2020-02-27)
DX: J18.9 Pneumonia, unspecified organism (principal); N18.6 End stage renal disease; I12.0 Hypertensive chronic kidney disease with stage 5 chronic kidney disease or end stage renal disease; I10 Essential (primary) hypertension; Z99.2 Dependence on renal dialysis; D63.1 Anemia in chronic kidney disease; Z87.891 Personal history of nicotine dependence